=== PATIENT | female | born 1950 | race Two or more races ===

== ENCOUNTER 2022-06-20 01:26 | Inpatient (IN) | payer OTHER ==
[~2022-06-20] VITALS: Ht 149.9 cm; Wt 53.5 kg
[2022-06-20] MEDS ORDERED: METFORMIN HCL500 M4 (01:30)
[2022-06-20] MEDS ORDERED: COZAAR25 MG (01:30)
[2022-06-20] MEDS ORDERED: GRALISE600 MG PO (01:30)
--- NOTE | 2022-06-20 01:32 | NUR ---
PTE ALERTA Y ORIENTADA POR CHITO ESFERAS CON BUEN PATRON RESPIRATORIO. VIENE EN ASHLEIGH POR AMBULANCIA, REFIERE QUE EN EL TIFFANIE DE PROSPER SE JULIO CESAR EN EL HOGAR Y SE FRACTURO CADERA IZQUIERDA. PTE ES TRANSFER DEL [facility] [place] ACEPTADO POR DR.IVAN MILLIGAN. PTE CON CANALIZACION EN [facility].
--- NOTE | 2022-06-20 03:18 | NUR ---
PACIENTE SE LE REALIZA ADMINISTRACION DE MEDICAMENTOS POR ORDEN MEDICA, SE ORIENTA A PACIENTR
--- NOTE | 2022-06-20 07:00 | NUR ---
SE RECIBE PTE FEMENINA DE 72 ANOS ALERTA Y ORIENTADO X3 AL MOMENTO SE OBSERBA EN DESCANSO EN CAMA. PTE SE OBSERBA PTE CON INFUCION DE 0.9% NSS A 125 ML/HR. PTE AL MOMENTO PEND A CONSULTA CON IRRIZARY POR FRACTURA DE CADERA.
[2022-06-23] MEDS ORDERED: FAMOTIDINE40 MG (09:32)
[2022-06-23] MEDS ORDERED: PANTOPRAZOLE SO40 MG (09:33)
[2022-06-23] MEDS ORDERED: ALLERGY RELIEF180 MG (09:33)
[2022-06-23] MEDS ORDERED: FLONASE16 GM (09:33)
[2022-06-23] MEDS ORDERED: ATORVASTATIN CA20 MG (09:33)
[2022-06-23] MEDS ORDERED: LOSARTAN-HCTZ1 EAC1 (09:34)
[2022-06-23] MEDS ORDERED: MAXIMUM D3325 MCG (09:34)
[2022-06-23] MEDS ORDERED: CALCIUM 600+D1 EAC1 (09:34)
[2022-06-23] MEDS ORDERED: SPIRIVA RESPIMAT4 GM (09:34)
== END 2022-06-24 18:08 | DRG 482 ==
LOC: ER 01:26 → SURH 11:14 → SURG 11:14 → SURH 13:49
PROVIDERS: Orthopaedic Surgery; ADMIT Internal Medicine; ATTEND Internal Medicine
PROC: 0QR Lower Bones, Replacement (ICD-10-PCS; 2022-06-21)
PROC: 0QSC06Z Reposition Left Lower Femur with Intramedullary Internal Fixation Device, Open Approach (ICD-10-PCS; principal; 2022-06-21 07:15)
PROC: 30233N1 Transfusion of Nonautologous Red Blood Cells into Peripheral Vein, Percutaneous Approach (ICD-10-PCS; 2022-06-22)
DX: S72.142A Displaced intertrochanteric fracture of left femur, initial encounter for closed fracture (principal); M19.90 Unspecified osteoarthritis, unspecified site; D64.9 Anemia, unspecified; E11.9 Type 2 diabetes mellitus without complications; I10 Essential (primary) hypertension; I73.9 Peripheral vascular disease, unspecified; W19.XXXA Unspecified fall, initial encounter; Y93.9 Activity, unspecified; Y99.9 Unspecified external cause status; Z79.4 Long term (current) use of insulin

== ENCOUNTER 2022-07-23 14:31 | Outpatient (CLI) | payer OTHER ==
[~2022-07-23 14:31] MED LIST: ALLERGY RELIEF180 MG; ATORVASTATIN CA20 MG; CALCIUM 600+D1 EAC1; COZAAR25 MG; FAMOTIDINE40 MG; FLONASE16 GM; GRALISE600 MG PO; LOSARTAN-HCTZ1 EAC1; MAXIMUM D3325 MCG; METFORMIN HCL500 M4; PANTOPRAZOLE SO40 MG; SPIRIVA RESPIMAT4 GM
== END 2022-07-23 14:39 | disposition home or self-care (01) ==
LOC: RAD 14:31
PROVIDERS: ATTEND Orthopaedic Surgery
DX: S72.042A Displaced fracture of base of neck of left femur, initial encounter for closed fracture (principal)

== ENCOUNTER 2022-09-23 08:05 | Outpatient (CLI) | payer OTHER | END 2022-09-23 08:10 | disposition home or self-care (01) | LOC: RAD 08:05 | PROVIDERS: ATTEND Orthopaedic Surgery | DX: S72.042D Displaced fracture of base of neck of left femur, subsequent encounter for closed fracture with routine healing (principal) ==